=== PATIENT | female | born 1960 | race Caucasian/White ===

== ENCOUNTER → 2018-10-26 12:35 | Outpatient (CLI) | payer OTHER, SELFPAY ==
--- NOTE | 2018-10-26 12:45 | US_ITS ---
PROCEDURE: US FNA THYROID CLINICAL INDICATION: RT THYROID NODULE Isthmus nodule COMPARISON: No exams were available for comparison TECHNIQUE: Pre biopsy ultrasound demonstrates a 19 mm solid-appearing nodule involving the central aspect of the isthmus with some increased blood flow. This was the area targeted for FNA Following obtaining informed consent, using aseptic technique and local anesthesia with buffered lidocaine, fine-needle aspiration was performed of the nodule of interest using sonographic guidance. 3 passes were made into the nodule with a 25-gauge needle. Specimen was given to cytology. The patient tolerated the procedure well without evidence of immediate complication and left radiology suite in stable condition FINDINGS: CYTOLOGY: Negative for malignant cells IMPRESSION: FNA of the isthmus nodule is negative for malignant cells. The patient tolerated the procedure well without evidence of immediate complications and left the ultrasound suite in stable condition. Dictated by: Reji Combs MD 11/02/2018 17:51 Electronically signed by Reji Combs MD in [place] 11/02/2018 17:51
== END ==
PROVIDERS: PCP Nurse Practitioner Family; Visit Provider Otolaryngology
DX: D34 Benign neoplasm of thyroid gland (principal)
CPT/HCPCS: 10005; 76942